=== PATIENT | male | born 1990 ===

== ENCOUNTER → 2016-10-03 | Outpatient (CLI) | payer SELFPAY ==
--- NOTE | 2016-10-03 09:54 | Diagnostic Imaging Report ---
Indication: TB screen Comparison: None 2 views of the chest obtained. Findings: Cardiomediastinal silhouette and pulmonary vascularity are within normal limits for age. The diaphragmatic contour is smooth and costophrenic angles are sharp. No pleural effusions are identified. The bones are unremarkable. Impression: No acute disease
== END | disposition home or self-care (01) ==
LOC: RAD 08:51
DX: Z11.1 Encounter for screening for respiratory tuberculosis (principal)
CPT/HCPCS: 71020